=== PATIENT | male | born 1985 | race Caucasian/White ===

== ENCOUNTER 2020-08-15 11:00 | Emergency (ER) | payer OTHER ==
[~2020-08-15] VITALS: Ht 177.8 cm; Wt 59.9 kg
--- NOTE | 2020-08-16 14:58 | EKG ---
[facility] [address] [place] [address] Signed Marked sinus bradycardia Abnormal ECG No previous ECGs available Confirmed by KEYANNA MCMAHON MD ([id number]) on 08/16/2020 2:58:07 PM Electronically Signed By: KEYANNA MCMAHON MD 08/16/20 1458 PATIENT NAME: NATHALIE HOLLAND Electrocardiogram DATE OF : 85 PHYSICIAN: KEYANNA MCMAHON MD REPORT #: [id number] REPORT IS CONFIDENTIAL AND NOT TO BE RELEASED WITHOUT AUTHORIZATION
== END 2020-08-15 19:18 | disposition short-term general hospital (02) ==
LOC: ED 11:00
DX: F32.9 Major depressive disorder, single episode, unspecified (principal); F17.200 Nicotine dependence, unspecified, uncomplicated
CPT/HCPCS: 80053; 80176; 81001; 84443; 85025; 93005; 93010; 99284-25; C9803; G0480

== ENCOUNTER 2021-06-28 12:10 | Emergency (ER) | payer OTHER ==
[~2021-06-28] VITALS: Ht 177.8 cm; Wt 59.9 kg
== END 2021-06-28 15:13 | disposition home or self-care (01) ==
LOC: ED 12:10
DX: K59.00 Constipation, unspecified (principal); F17.200 Nicotine dependence, unspecified, uncomplicated
CPT/HCPCS: 74018; 80053; 81001; 83690; 85025; 99284-25

== ENCOUNTER 2021-09-22 11:23 | Emergency (ER) | payer OTHER ==
[~2021-09-22] VITALS: Ht 177.8 cm; Wt 60.6 kg
== END 2021-09-22 14:25 | disposition home or self-care (01) ==
LOC: ED 11:23
DX: K59.00 Constipation, unspecified (principal); F17.200 Nicotine dependence, unspecified, uncomplicated
CPT/HCPCS: 74177; 80053; 81001; 85025; 96375; 99284-25; J1885; J2405; Q9967

== ENCOUNTER 2021-11-28 14:17 | Emergency (ER) | payer OTHER ==
[~2021-11-28] VITALS: Ht 177.8 cm; Wt 62.4 kg
== END 2021-11-28 17:31 | disposition home or self-care (01) ==
LOC: ED 14:17
DX: R11.10 Vomiting, unspecified (principal); F12.90 Cannabis use, unspecified, uncomplicated; F17.200 Nicotine dependence, unspecified, uncomplicated
CPT/HCPCS: 80048; 81001; 85025; 99284